=== PATIENT | female | born 1950 | race Native Hawaiian/Other Pacific Islander ===

== ENCOUNTER 2017-01-16 12:41 | Outpatient (CLI) | payer OTHER ==
[2017-01-16 13:50] LABS: PLATELET COUNT 377 K/uL (152-353)
[2017-01-16 14:05] LABS: POTASSIUM 3.9 mmol/L (3.6-5.2)
== END 2017-01-16 18:57 | disposition home or self-care (01) ==
LOC: LAB 12:41
PROVIDERS: Nurse Practitioner Family
DX: R53.83 Other fatigue (principal); E55.9 Vitamin D deficiency, unspecified; Z86.79 Personal history of other diseases of the circulatory system; R53.81 Other malaise; Z79.899 Other long term (current) drug therapy; Z51.81 Encounter for therapeutic drug level monitoring
CPT/HCPCS: 80053; 80061; 82652; 83036; 84436; 84443; 85027